=== PATIENT | male | born 1985 | race African-American/Black ===

== ENCOUNTER 2025-01-11 21:45 | Emergency (ER) | payer SELFPAY ==
[~2025-01-11] VITALS: Ht 182.9 cm; Wt 87.0 kg
[2025-01-11 22:11] VITALS: TEMP 36.8; O2SAT 99
[2025-01-12] MEDS: FLUORESCEIN SODIUM 1MG/STRIP BOTHEYE ONE (04:11)
[2025-01-12] MEDS: TETRACAINE 0.5% OPHTH DROPS 4ML BOTHEYE ONE (04:11)
[2025-01-12] MEDS ORDERED: POLY10DR18 EACHEYE (04:13)
[2025-01-12 04:31] VITALS: BP 130/76; PULSE 58; RESP 15; O2SAT 100
== END 2025-01-12 04:33 | disposition home or self-care (01) ==
LOC: ER 21:45
DX: H57.12 Ocular pain, left eye (principal); H57.11 Ocular pain, right eye
CPT/HCPCS: 99283; Z7610